=== PATIENT | male | born 1995 | race Caucasian/White ===

== ENCOUNTER 2020-04-03 12:55 | Day surgery (SDC) | payer OTHER ==
[~2020-04-03] VITALS: Ht 195.6 cm; Wt 91.6 kg
[~2020-04-03 12:55] MED LIST: NS 1,000 ML IV ONE
[2020-04-03] MEDS ORDERED: propofoL 200 MG/20 ML VIAL As Ordered ONE ×2 (13:54→14:43)
[2020-04-03] MEDS ORDERED: LIDOCAINE 2% 100MG/5ML SDV (FOR ANES.) As Ordered ONE (13:54)
--- NOTE | 2020-04-03 15:01 | ROOR ---
Patient Name: Pedro Miranda Procedure Date: 04/03/2020 2:26 PM Date of : 1995 Age: 24 Room: [facility] Gender: Male Note Status: Finalized Procedure: Total Colonoscopy to cecum + Bx. Indications: Rectal bleeding Providers: Blane Torres MD Referring MD: MACKENZIE OWESN MD Requesting Provider: Medicines: Monitored Anesthesia Care Complications: No immediate complications. Procedure: Pre-Anesthesia Assessment: - The heart rate, respiratory rate, oxygen saturations, blood pressure, adequacy of pulmonary ventilation, and response to care were monitored throughout the procedure. The Colonoscope was introduced through the anus and advanced to the cecum, identified by appendiceal orifice and ileocecal valve. The colonoscopy was performed without difficulty. The patient tolerated the procedure well. The quality of the bowel preparation was excellent. Findings: The perianal and digital rectal examinations were normal. Non-bleeding internal hemorrhoids were found during retroflexion. The hemorrhoids were small and Grade I (internal hemorrhoids that do not prolapse). Inflammation characterized by congestion (edema), erosions, friability, granularity, loss of vascularity and mucus was found as medium patches surrounded by normal mucosa in the rectum and at the cecum. This was moderate in severity, and when compared to previous examinations, the findings are new. Biopsies were taken with a cold forceps for histology. The exam was otherwise without abnormality on direct and retroflexion views. Impression: - Non-bleeding internal hemorrhoids. - Proctitis ulcerative colitis. Inflammation was found in the rectum and at the cecum. This was moderate in severity, new compared to previous examinations. Biopsied. - The examination was otherwise normal on direct and retroflexion views. - The exam was otherwise normal to the cecum. Recommendation: - Patient has a contact number available for emergencies. The signs and symptoms of potential delayed complications were discussed with the patient. Return to normal activities tomorrow. Written discharge instructions were provided to the patient. - High fiber diet. - Discharge patient to home. - Use Canasa 1000 mg suppository 1 per rectum QHS. - Await pathology results. - Return to GI office in 1 month. - Repeat colonoscopy in 5 years for surveillance based on pathology results. - Return to referring physician. - Telephone GI clinic for pathology results in 1 week. - The findings and recommendations were discussed with the patient. Blane Torres MD Blane Torres MD 04/03/2020 3:01:14 PM Electronically signed by Blane Torres MD Number of Addenda: 0 Note Initiated On: 04/03/2020 2:26 PM Estimated Blood Loss: Estimated blood loss: none.
[2020-04-03 15:25] VITALS: BP 126/70
== END 2020-04-03 16:00 | disposition home or self-care (01) ==
LOC: M OPP 12:55
PROVIDERS: ATTEND Internal Medicine Gastroenterology
DX: K51.211 Ulcerative (chronic) proctitis with rectal bleeding (principal); K64.0 First degree hemorrhoids; K62.5 Hemorrhage of anus and rectum